=== PATIENT | female | born 1930 | race Asian ===

== ENCOUNTER 2018-09-21 23:17 | Inpatient (IN) | payer MEDICARE, OTHER ==
[2018-09-21 23:33] LABS: ADD MAN DIFF? NO
[2018-09-21] MEDS: NALOXONE 2 MG SYG IV (23:33)
[2018-09-21 23:40] LABS: WHITE BLOOD COUNT 7.7 10^3/ul (4.8-10.8)
[2018-09-21 23:40] LABS: BASOPHILS % 0.5 % (0.0-2.0); EOSINOPHILS # 0.6 10^3/ul (0.0-0.5); EOSINOPHILS % 7.1 % (0.0-7.0); HEMATOCRIT 24.7 % (37.0-47.0); HEMOGLOBIN 8.2 g/dl (12.0-16.0); LYMPHOCYTES % 26.2 % (15.0-51.0); MEAN CORPUSCULAR HEMOGLOBIN 30.7 pg (29.0-33.0); MEAN CORPUSCULAR HGB CONC 33.2 g/dl (32.0-37.0); MEAN CORPUSCULAR VOLUME 92.5 fl (82.0-101.0); MEAN PLATELET VOLUME 9.6 fl (7.4-10.4); MONOCYTE # 0.8 10^3/ul (0.3-0.9); MONOCYTES % 9.9 % (0.0-11.0); NEUTROPHIL # 4.3 10^3/ul (1.6-7.5); PLATELET COUNT 144 10^3/UL (140-415); RED BLOOD COUNT 2.67 10^6/ul (4.20-5.40); RED CELL DISTRIBUTION WIDTH 14.1 % (11.5-14.5)
[2018-09-21 23:54] LABS: INR 0.96; PROTIME 12.9 Sec (11.9-14.9)
[2018-09-21 23:55] LABS: PARTIAL THROMBOPLASTIN TIME 35.6 Sec (23.0-35.0)
[2018-09-21 23:59] LABS: ALANINE AMINOTRANSFERASE 33 IU/L (13-69); ALBUMIN 3.8 g/dl (3.3-4.9); ALBUMIN/GLOBULIN RATIO 1.22; ALKALINE PHOSPHATASE 56 IU/L (42-121); ANION GAP 12 (5-13); ASPARTATE AMINO TRANSFERASE 36 IU/L (15-46); BILIRUBIN,INDIRECT 0.1 mg/dl (0-1.1); BILIRUBIN,TOTAL 0.1 mg/dl (0.2-1.3); BLOOD UREA NITROGEN 61 mg/dl (7-20); CALCIUM 9.2 mg/dl (8.4-10.2); CARBON DIOXIDE 19 mmol/L (21-31); CHLORIDE 101 mmol/L (97-110); CREATININE 2.29 mg/dl (0.44-1.00); GLUCOSE 113 mg/dl (70-220); POTASSIUM 4.5 mmol/L (3.5-5.1); SODIUM 132 mmol/L (135-144); TOTAL PROTEIN 6.9 g/dl (6.1-8.1)
[2018-09-22 00:10] LABS: TROPONIN-I < 0.012 ng/ml (0.000-0.120)
[2018-09-22 00:48] LABS: URINE PH (Dip) POC 5.5 (5.0-8.5)
[2018-09-22 00:48] LABS: URINE BLOOD (Dip) POC Negative (NEGATIVE); URINE GLUCOSE (Dip) POC Negative (NEGATIVE); URINE KETONES (Dip) POC Negative (NEGATIVE); URINE LEUKOCYTE EST (Dip) POC 1+ (NEGATIVE); URINE NITRITE (Dip) POC Negative (NEGATIVE); URINE TOTAL PROTEIN POC 2+ (NEGATIVE)
[2018-09-22 00:58] LABS: ADD UMIC YES; UR ASCORBIC ACID 20 mg/dL (NEGATIVE); UR BILIRUBIN (Dip) NEGATIVE (NEGATIVE); UR BLOOD (Dip) NEGATIVE (NEGATIVE); UR CLARITY CLEAR (CLEAR); UR COLOR YELLOW (YELLOW); UR GLUCOSE (Dip) NEGATIVE (NEGATIVE); UR KETONES (Dip) NEGATIVE (NEGATIVE); UR LEUKOCYTE ESTERASE (Dip) 1+ Leu/ul (NEGATIVE); UR NITRITE (Dip) NEGATIVE (NEGATIVE); UR RBC 0 /HPF (0-5); UR SPECIFIC GRAVITY (Dip) 1.011 (1.003-1.030); UR TOTAL PROTEIN (Dip) 2+ mg/dl (NEGATIVE); UR UROBILINOGEN (Dip) NEGATIVE (NEGATIVE); UR WBC 9 /HPF (0-5)
[2018-09-22] MEDS: CEFTRIAXONE 1 GM/50 ML (PMX) 50 ML IVPB ×2 (01:16→08:38)
[2018-09-22] MEDS ORDERED: ONDANSETRON 4 MG INJ IV (05:30)
[2018-09-22] MEDS ORDERED: ACETAMINOPHEN 325 MG TAB PO (05:30)
[2018-09-22] MEDS ORDERED: NACL 0.9% 3 ML SYG IV (05:30)
[2018-09-22] MEDS ORDERED: ALBUTEROL/IPRATROPIUM (NEB) 3 ML AMP HHN (05:30)
[2018-09-22] MEDS: PANTOPRAZOLE (EC) 40 MG TAB PO ×2 (06:23→17:53)
[2018-09-22 07:00] LABS: LACTIC ACID 0.7 mmol/L (0.5-2.0)
[2018-09-22 07:33] LABS: CREATINE KINASE 90 IU/L (23-200)
[2018-09-22 07:46] LABS: CK INDEX 1.9; CK-MB 1.73 ng/ml (0.0-2.4); TROPONIN-I < 0.012 ng/ml (0.000-0.120)
[2018-09-22] MEDS: NIFEdipine (XL) 30 MG TAB PO (08:36)
[2018-09-22] MEDS: LOSARTAN 25 MG TAB PO (08:37)
[2018-09-22] MEDS: DOCUSATE SODIUM 100 MG CAP PO ×2 (08:37→20:39)
[2018-09-22] MEDS: HEPARIN 5,000 UNIT/1 ML VIAL SC ×2 (08:44→20:56)
[2018-09-22] MEDS ORDERED: NON-FORMULARY/PATIENT OWN MED (Omeprazole* 20 MG) PO (09:00)
[2018-09-22] MEDS ORDERED: CEFTRIAXONE 1 GM/50 ML (PMX) 50 ML IVPB (09:30)
[2018-09-22] MEDS: METHYLPREDNISOLONE 40 MG INJ IV ×3 (09:35→21:02)
[2018-09-22 11:37] LABS: CREATINE KINASE 79 IU/L (23-200)
[2018-09-22 11:50] LABS: CK INDEX 1.6; CK-MB 1.23 ng/ml (0.0-2.4); TROPONIN-I < 0.012 ng/ml (0.000-0.120)
[2018-09-22] MEDS: ATORVASTATIN 10 MG TAB PO (20:39)
[2018-09-22] MEDS ORDERED: NON-FORMULARY/PATIENT OWN MED (Simvastatin* (Zocor*) 20 MG) PO (21:00)
[2018-09-23] MEDS: hydrALAzine 20 MG INJ IV (04:14)
[2018-09-23] MEDS: PANTOPRAZOLE (EC) 40 MG TAB PO ×2 (05:57→18:36)
[2018-09-23] MEDS: METHYLPREDNISOLONE 40 MG INJ IV ×3 (05:57→21:34)
[2018-09-23 06:25] LABS: ADD MAN DIFF? NO
[2018-09-23 06:32] LABS: WHITE BLOOD COUNT 7.7 10^3/ul (4.8-10.8)
[2018-09-23 06:32] LABS: BASOPHILS % 0.1 % (0.0-2.0); HEMATOCRIT 27.8 % (37.0-47.0); LYMPHOCYTES # 1.4 10^3/ul (0.8-2.9); LYMPHOCYTES % 18.7 % (15.0-51.0); MEAN CORPUSCULAR HEMOGLOBIN 30.2 pg (29.0-33.0); MEAN CORPUSCULAR HGB CONC 32.4 g/dl (32.0-37.0); MEAN CORPUSCULAR VOLUME 93.3 fl (82.0-101.0); MONOCYTE # 0.5 10^3/ul (0.3-0.9); MONOCYTES % 6.4 % (0.0-11.0); NEUTROPHIL # 5.7 10^3/ul (1.6-7.5); NEUTROPHILS % 74.3 % (39.0-77.0); PLATELET COUNT 172 10^3/UL (140-415); RED BLOOD COUNT 2.98 10^6/ul (4.20-5.40); RED CELL DISTRIBUTION WIDTH 14.1 % (11.5-14.5)
[2018-09-23 06:58] LABS: ANION GAP 11 (5-13)
[2018-09-23 06:59] LABS: ALANINE AMINOTRANSFERASE 46 IU/L (13-69); ALBUMIN 3.9 g/dl (3.3-4.9); ALBUMIN/GLOBULIN RATIO 1.21; ALKALINE PHOSPHATASE 54 IU/L (42-121); ASPARTATE AMINO TRANSFERASE 46 IU/L (15-46); BLOOD UREA NITROGEN 57 mg/dl (7-20); CALCIUM 9.7 mg/dl (8.4-10.2); CARBON DIOXIDE 18 mmol/L (21-31); CHLORIDE 107 mmol/L (97-110); CREATININE 2.24 mg/dl (0.44-1.00); GLUCOSE 111 mg/dl (70-220); POTASSIUM 4.7 mmol/L (3.5-5.1); SODIUM 136 mmol/L (135-144); TOTAL PROTEIN 7.1 g/dl (6.1-8.1)
[2018-09-23] MEDS: LOSARTAN 25 MG TAB PO ×2 (08:20→21:36)
[2018-09-23] MEDS: NIFEdipine (XL) 90 MG TAB PO (08:20)
[2018-09-23] MEDS: DOCUSATE SODIUM 100 MG CAP PO ×2 (08:20→21:35)
[2018-09-23] MEDS: CEFTRIAXONE 1 GM/50 ML (PMX) 50 ML IVPB (08:21)
[2018-09-23] MEDS: HEPARIN 5,000 UNIT/1 ML VIAL SC ×2 (08:31→21:49)
[2018-09-23 12:50] LABS: IRON 72 ug/dl (35-150)
[2018-09-23 12:59] LABS: % IRON SATURATION 31 % SAT (22-52); TOTAL IRON BINDING CAPACITY 233 ug/dl (241-421)
[2018-09-23] MEDS: LACTATED RINGER'S 500 ML IV (13:39)
[2018-09-23] MEDS: CELECOXIB 100 MG CAP PO ×2 (13:46→21:36)
[2018-09-23] MEDS: ATORVASTATIN 10 MG TAB PO (21:34)
[2018-09-23] MEDS: METOPROLOL (XL) 100 MG TAB PO (21:35)
[2018-09-24] MEDS: METHYLPREDNISOLONE 40 MG INJ IV (05:35)
[2018-09-24] MEDS: PANTOPRAZOLE (EC) 40 MG TAB PO ×2 (05:36→17:46)
[2018-09-24 06:25] LABS: ALANINE AMINOTRANSFERASE 44 IU/L (13-69); ALBUMIN 3.6 g/dl (3.3-4.9); ALBUMIN/GLOBULIN RATIO 1.24; ALKALINE PHOSPHATASE 47 IU/L (42-121); ANION GAP 11 (5-13); ASPARTATE AMINO TRANSFERASE 38 IU/L (15-46); BLOOD UREA NITROGEN 68 mg/dl (7-20); CALCIUM 9.5 mg/dl (8.4-10.2); CARBON DIOXIDE 17 mmol/L (21-31); CHLORIDE 106 mmol/L (97-110); CREATININE 2.37 mg/dl (0.44-1.00); GLUCOSE 108 mg/dl (70-220); POTASSIUM 5.2 mmol/L (3.5-5.1); SODIUM 134 mmol/L (135-144); TOTAL PROTEIN 6.5 g/dl (6.1-8.1)
[2018-09-24] MEDS: METOPROLOL (XL) 100 MG TAB PO ×2 (08:46→22:45)
[2018-09-24] MEDS: DOCUSATE SODIUM 100 MG CAP PO ×2 (08:46→22:45)
[2018-09-24] MEDS: CELECOXIB 100 MG CAP PO ×2 (08:46→22:45)
[2018-09-24] MEDS: LOSARTAN 25 MG TAB PO ×2 (08:46→10:38)
[2018-09-24] MEDS: CEFTRIAXONE 1 GM/50 ML (PMX) 50 ML IVPB (08:47)
[2018-09-24] MEDS: TIOTROPIUM 18 MCG CAPSULE INHA DEV INH (08:47)
[2018-09-24] MEDS: HEPARIN 5,000 UNIT/1 ML VIAL SC ×2 (08:57→23:03)
[2018-09-24] MEDS: DOXAZOSIN 1 MG TAB PO (10:00)
[2018-09-24] MEDS: LACTATED RINGER'S 500 ML IV (10:44)
[2018-09-24] MEDS: DOXAZOSIN 4 MG TAB PO (11:39)
[2018-09-24] MEDS ORDERED: LOSARTAN 25 MG TAB PO (21:00)
[2018-09-24] MEDS: ATORVASTATIN 10 MG TAB PO (22:46)
[2018-09-24] MEDS: DOXAZOSIN 2 MG TAB PO (22:46)
[2018-09-25] MEDS ORDERED: LOSARTAN 25 MG TAB (00:14)
[2018-09-25] MEDS ORDERED: LOSARTAN 50 MG TAB (00:15)
[2018-09-25] MEDS: LOSARTAN 50 MG TAB PO ×3 (00:23→21:06)
[2018-09-25 06:04] LABS: ANION GAP 13 (5-13); BLOOD UREA NITROGEN 73 mg/dl (7-20); CALCIUM 8.6 mg/dl (8.4-10.2); CARBON DIOXIDE 17 mmol/L (21-31); CHLORIDE 103 mmol/L (97-110); CREATININE 2.37 mg/dl (0.44-1.00); GLUCOSE 97 mg/dl (70-220); POTASSIUM 4.7 mmol/L (3.5-5.1); SODIUM 133 mmol/L (135-144)
[2018-09-25] MEDS: PANTOPRAZOLE (EC) 40 MG TAB PO ×2 (06:15→17:30)
[2018-09-25] MEDS: CELECOXIB 100 MG CAP PO ×2 (08:12→21:03)
[2018-09-25] MEDS: METHYLPREDNISOLONE 40 MG INJ IV (08:12)
[2018-09-25] MEDS: DOCUSATE SODIUM 100 MG CAP PO ×2 (08:12→21:05)
[2018-09-25] MEDS: METOPROLOL (XL) 100 MG TAB PO ×2 (08:13→21:05)
[2018-09-25] MEDS: HEPARIN 5,000 UNIT/1 ML VIAL SC ×2 (08:21→21:09)
[2018-09-25] MEDS: TIOTROPIUM 18 MCG CAPSULE INHA DEV INH (08:24)
[2018-09-25 11:53] LABS: B-TYPE NATRIURETIC PEPTIDE 18400 PG/ML (0-450)
[2018-09-25] MEDS: ALBUTEROL 0.083% (NEB) 2.5 MG/3 ML AMP HHN ×2 (14:42→22:01)
[2018-09-25] MEDS: ATORVASTATIN 10 MG TAB PO (21:02)
[2018-09-25] MEDS: NIFEdipine (XL) 60 MG TAB PO (21:05)
[2018-09-25] MEDS: ARFORMOTEROL TARTRATE 15MCG/2 ML AMP NEB (22:12)
[2018-09-26] MEDS ORDERED: hydrALAzine 20 MG INJ IV (01:00)
[2018-09-26 05:15] LABS: ADD MAN DIFF? NO
[2018-09-26 05:23] LABS: BASOPHIL # 0.1 10^3/ul (0.0-0.1); BASOPHILS % 0.5 % (0.0-2.0); EOSINOPHILS # 0.5 10^3/ul (0.0-0.5); HEMATOCRIT 26.2 % (37.0-47.0); HEMOGLOBIN 8.6 g/dl (12.0-16.0); LYMPHOCYTES # 2.6 10^3/ul (0.8-2.9); LYMPHOCYTES % 26.8 % (15.0-51.0); MEAN CORPUSCULAR HEMOGLOBIN 30.9 pg (29.0-33.0); MEAN CORPUSCULAR HGB CONC 32.8 g/dl (32.0-37.0); MEAN CORPUSCULAR VOLUME 94.2 fl (82.0-101.0); MEAN PLATELET VOLUME 9.8 fl (7.4-10.4); MONOCYTES % 9.9 % (0.0-11.0); NEUTROPHIL # 5.5 10^3/ul (1.6-7.5); NEUTROPHILS % 56.9 % (39.0-77.0); PLATELET COUNT 172 10^3/UL (140-415); RED BLOOD COUNT 2.78 10^6/ul (4.20-5.40); RED CELL DISTRIBUTION WIDTH 14.2 % (11.5-14.5)
[2018-09-26 05:23] LABS: WHITE BLOOD COUNT 9.6 10^3/ul (4.8-10.8)
[2018-09-26 05:48] LABS: MAGNESIUM 2.2 mg/dl (1.7-2.5)
[2018-09-26 05:48] LABS: PHOSPHORUS 5.7 mg/dl (2.5-4.9)
[2018-09-26] MEDS: PANTOPRAZOLE (EC) 40 MG TAB PO ×2 (05:52→17:18)
[2018-09-26 06:23] LABS: ANION GAP 9 (5-13); BLOOD UREA NITROGEN 75 mg/dl (7-20); CALCIUM 9.1 mg/dl (8.4-10.2); CARBON DIOXIDE 19 mmol/L (21-31); CHLORIDE 107 mmol/L (97-110); CREATININE 2.47 mg/dl (0.44-1.00); GLUCOSE 97 mg/dl (70-220); POTASSIUM 4.9 mmol/L (3.5-5.1); SODIUM 135 mmol/L (135-144)
[2018-09-26] MEDS: TIOTROPIUM 18 MCG CAPSULE INHA DEV INH (08:14)
[2018-09-26] MEDS: METHYLPREDNISOLONE 40 MG INJ IV (08:15)
[2018-09-26] MEDS: METOPROLOL (XL) 100 MG TAB PO ×2 (08:16→20:07)
[2018-09-26] MEDS: LOSARTAN 50 MG TAB PO ×2 (08:16→20:06)
[2018-09-26] MEDS: ASPIRIN (EC) 81 MG TAB PO (08:17)
[2018-09-26] MEDS: NIFEdipine (XL) 60 MG TAB PO ×2 (08:17→20:07)
[2018-09-26] MEDS: DOCUSATE SODIUM 100 MG CAP PO ×2 (08:17→20:05)
[2018-09-26] MEDS: HEPARIN 5,000 UNIT/1 ML VIAL SC ×2 (08:30→20:14)
[2018-09-26] MEDS: ALBUTEROL 0.083% (NEB) 2.5 MG/3 ML AMP HHN ×3 (08:32→21:17)
[2018-09-26] MEDS: ARFORMOTEROL TARTRATE 15MCG/2 ML AMP NEB ×2 (08:32→21:17)
[2018-09-26] MEDS: FUROSEMIDE 20 MG INJ IV (10:33)
[2018-09-26] MEDS: CITRIC ACID/NA CITRATE 30 ML CUP PO ×2 (11:30→20:05)
[2018-09-26] MEDS: ATORVASTATIN 10 MG TAB PO (20:05)
[2018-09-27] MEDS: PANTOPRAZOLE (EC) 40 MG TAB PO ×2 (05:27→17:37)
[2018-09-27 05:38] LABS: ADD MAN DIFF? NO
[2018-09-27 05:45] LABS: WHITE BLOOD COUNT 9.6 10^3/ul (4.8-10.8)
[2018-09-27 05:45] LABS: BASOPHILS % 0.4 % (0.0-2.0); EOSINOPHILS # 0.6 10^3/ul (0.0-0.5); EOSINOPHILS % 6.1 % (0.0-7.0); HEMOGLOBIN 8.5 g/dl (12.0-16.0); LYMPHOCYTES # 2.1 10^3/ul (0.8-2.9); LYMPHOCYTES % 22.3 % (15.0-51.0); MEAN CORPUSCULAR HGB CONC 32.7 g/dl (32.0-37.0); MEAN CORPUSCULAR VOLUME 94.9 fl (82.0-101.0); MEAN PLATELET VOLUME 9.8 fl (7.4-10.4); MONOCYTES % 10.5 % (0.0-11.0); NEUTROPHIL # 5.7 10^3/ul (1.6-7.5); PLATELET COUNT 187 10^3/UL (140-415); RED BLOOD COUNT 2.74 10^6/ul (4.20-5.40); RED CELL DISTRIBUTION WIDTH 14.3 % (11.5-14.5)
[2018-09-27 06:02] LABS: PHOSPHORUS 5.6 mg/dl (2.5-4.9)
[2018-09-27 06:02] LABS: MAGNESIUM 2.2 mg/dl (1.7-2.5)
[2018-09-27 06:22] LABS: ANION GAP 16 (5-13); BLOOD UREA NITROGEN 72 mg/dl (7-20); CALCIUM 9.4 mg/dl (8.4-10.2); CARBON DIOXIDE 20 mmol/L (21-31); CHLORIDE 103 mmol/L (97-110); CREATININE 2.52 mg/dl (0.44-1.00); GLUCOSE 98 mg/dl (70-220); SODIUM 139 mmol/L (135-144)
[2018-09-27 07:07] LABS: POTASSIUM 5.2 mmol/L (3.5-5.1)
[2018-09-27 08:00] LABS: URIC ACID 7.7 mg/dl (3.1-7.9)
[2018-09-27 08:09] LABS: B-TYPE NATRIURETIC PEPTIDE 12700 PG/ML (0-450)
[2018-09-27] MEDS: METHYLPREDNISOLONE 40 MG INJ IV (08:27)
[2018-09-27] MEDS: NIFEdipine (XL) 60 MG TAB PO ×2 (08:28→20:27)
[2018-09-27] MEDS: DOCUSATE SODIUM 100 MG CAP PO ×2 (08:29→20:28)
[2018-09-27] MEDS: METOPROLOL (XL) 100 MG TAB PO ×2 (08:29→20:27)
[2018-09-27] MEDS: HEPARIN 5,000 UNIT/1 ML VIAL SC ×2 (08:42→20:26)
[2018-09-27] MEDS: ARFORMOTEROL TARTRATE 15MCG/2 ML AMP NEB ×2 (09:03→20:00)
[2018-09-27] MEDS: ALBUTEROL 0.083% (NEB) 2.5 MG/3 ML AMP HHN ×3 (09:03→20:42)
[2018-09-27] MEDS: TIOTROPIUM 18 MCG CAPSULE INHA DEV INH (09:34)
[2018-09-27] MEDS: ASPIRIN (EC) 81 MG TAB PO (09:35)
[2018-09-27] MEDS: SODIUM POLYSTYRENE 15 GM KIT (POWDER + SORBITOL) PO (09:35)
[2018-09-27] MEDS: CITRIC ACID/NA CITRATE 30 ML CUP PO ×3 (09:35→20:24)
[2018-09-27] MEDS: FUROSEMIDE 20 MG INJ IV (09:35)
[2018-09-27 14:52] LABS: AADO2 Arterial 27.7 mmHg (7.0-24.0); Allen Test ACCEPTAB; Arterial Base Excess -6.1 mmol/L (-3.0-3); Arterial Blood Gas Oxygen Sat 95.7 mmHG (95.0-100.0); Arterial COHb 0.3 % (0.0-3.0); Arterial Fraction of Oxyhgb 95.1 % (93.0-99.0); Arterial MetHb 0.3 % (0.0-1.5); Arterial pCO2 30.9 mmhg (35-45); MODE ROOM AIR; Site Right Radial
[2018-09-27] MEDS: ATORVASTATIN 10 MG TAB PO (20:24)
== END 2018-09-27 21:31 | disposition home or self-care (01) | DRG 190 ==
LOC: E/R 23:17 → 6WM 09-25 22:10 → TEL 09-22 02:59 → 6WM 09-22 11:43
DX: J44.1 Chronic obstructive pulmonary disease with (acute) exacerbation (principal); G92 Toxic encephalopathy; E87.2 Acidosis; N39.0 Urinary tract infection, site not specified; N17.9 Acute kidney failure, unspecified; E87.1 Hypo-osmolality and hyponatremia; I27.20 Pulmonary hypertension, unspecified; N18.3 Chronic kidney disease, stage 3 (moderate); D63.1 Anemia in chronic kidney disease; I12.9 Hypertensive chronic kidney disease with stage 1 through stage 4 chronic kidney disease, or unspecified chronic kidney disease; I08.0 Rheumatic disorders of both mitral and aortic valves; I25.10 Atherosclerotic heart disease of native coronary artery without angina pectoris; E78.5 Hyperlipidemia, unspecified; Z79.82 Long term (current) use of aspirin; Z95.0 Presence of cardiac pacemaker
CPT/HCPCS: 36415; 36600; 70450; 71045; 76775; 80048; 80053; 81001; 81003; 82550; 82553; 82803; 83540; 83605; 83735; 83880; 84100; 84484; 84560; 85025; 85610; 85730; 87040; 87086; 93005; 93306; 94010; 94640; 94664; 96374; 96375; 97116; 97162; 97530; 99285-25